=== PATIENT | male | born 1980 | race African-American/Black ===

== ENCOUNTER 2017-04-10 09:38 | Outpatient (CLI) | payer OTHER ==
[2017-04-10] MEDS ORDERED: LIDOCAINE 1% 300 MG/30 ML SDV ONE (09:51)
[2017-04-10 10:30] LABS: HEMATOCRIT 46.9 % (40.0-51.0); HEMOGLOBIN 16.4 g/dL (13.7-17.5)
[2017-04-10 10:44] LABS: APTT 30.5 SEC (23.0-38.0); INR 0.98 (0.83-1.16); PROTIME(PATIENT) 12.9 SEC (12.0-15.0)
[2017-04-10 10:47] LABS: ALBUMIN 4.6 g/dL (3.5-5.0); BILIRUBIN,TOTAL 3.9 mg/dL (0.1-1.4); BILIRUBIN-UNCONJUGATED 0.9 mg/dL (0.0-1.1); TOTAL PROTEIN 9.9 g/dL (6.3-8.2)
[2017-04-10] MEDS ORDERED: fentaNYL 100 MCG/2 ML INJ ONE (11:20)
[2017-04-10] MEDS ORDERED: MIDAZOLAM 2 MG/2 ML VIAL ONE (11:20)
[2017-04-10] MEDS ORDERED: hydrALAZINE 20 MG/ML VIAL ONE (11:32)
[2017-04-10] MEDS ORDERED: ONDANSETRON 4 MG/2 ML VIAL IVP PRN (12:33)
[2017-04-10 14:24] VITALS: TEMP 97.7
[2017-04-10 15:21] VITALS: BP 130/73; RESP 16; O2SAT 94
== END 2017-04-10 15:15 | disposition home or self-care (01) ==
LOC: FIMAGING 09:38
PROVIDERS: ATTEND Internal Medicine
PROC: 0FB03ZX Excision of Liver, Percutaneous Approach, Diagnostic (ICD-10-PCS; principal; 2017-04-10 12:15)
DX: K73.1 Chronic lobular hepatitis, not elsewhere classified (principal)
CPT/HCPCS: J0360; J2250; J2405; J3010